=== PATIENT | male | born 2000 | race African-American/Black ===

== ENCOUNTER 2023-06-07 09:07 | Emergency (ER) | payer MEDICAID ==
[~2023-06-07] VITALS: Ht 177.8 cm; Wt 145.0 kg
[~2023-06-07 09:07] MED LIST: CEPH500T MT
[2023-06-07 09:10] VITALS: TEMP 98.4; O2SAT 99
[2023-06-07 09:49] LABS: BASOPHILS % 0.8 % (0.0-2.0); EOSINOPHILS % 0.9 % (0.0-5.0); HEMATOCRIT. 49.7 % (42.0-52.0); HEMOGLOBIN. 16.5 g/dL (14.0-18.0); LYMPHOCYTES % 26.2 % (20.0-50.0); MEAN CORPUSCULAR HEMOGLOBIN 30.6 pg (28.0-32.0); MEAN CORPUSCULAR HGB CONC 33.1 g/dL (31.0-37.0); MEAN CORPUSCULAR VOLUME 92.3 fL (80.0-94.0); MEAN PLATELET VOLUME 7.8 fl (7.4-10.4); MONOCYTES % 9.3 % (2.0-8.0); NEUTROPHILS % 62.8 % (40.0-76.0); PLATELET 245 x1000/uL (130-400); RED BLOOD CELL COUNT 5.38 mill/uL (4.7-6.1); RED CELL DISTRIBUTION WIDTH 14.6 % (11.6-14.6); WHITE BLOOD COUNT 6.8 x1000/uL (4.5-11.0)
[2023-06-07 10:28] LABS: ALANINE AMINOTRANSFERASE 23 IU/L (10-49); ALBUMIN 4.8 g/dL (3.2-4.8); ASPARTATE AMINOTRANSFERASE 25 IU/L (<34); BILIRUBIN TOTAL 0.6 mg/dL (0.1-1.0); CALCIUM 9.3 mg/dL (8.7-10.4); CARBON DIOXIDE 25 mEq/L (21-32); CHLORIDE 108 mEq/L (98-107); GLUCOSE 114 mg/dL (70-105); SODIUM 141 mEq/L (136-145); UREA NITROGEN BLOOD 9 mg/dL (9-23)
[2023-06-07] MEDS ORDERED: DICY20TA2 MT (11:02)
[2023-06-07] MEDS ORDERED: ONDA4TAB11 PO (11:02)
[2023-06-07 12:01] VITALS: BP 122/85; PULSE 89; RESP 16
== END 2023-06-07 12:23 | disposition home or self-care (01) ==
LOC: ER 09:07
DX: R10.10 Upper abdominal pain, unspecified (principal); Z88.6 Allergy status to analgesic agent; Z98.890 Other specified postprocedural states
CPT/HCPCS: 36415; 74176; 80053; 85025; 99284